=== PATIENT | male | born 1955 | race Caucasian/White ===

== ENCOUNTER 2016-11-02 10:31 | Inpatient (IN) ==
--- NOTE | 2016-11-02 11:12 | CT Report ---
CT brain Indication: Left eye visual disturbance Comparison: None available Technique: Axial CT imaging of the brain is performed without contrast with 3 mm increments. Findings: No evidence of hemorrhage, mass mass effect midline shift or acute infarct seen. Small amounts of decreased density is seen in the white matter in the superior left parietal lobe. Remaining brain parenchyma attenuation and differentiation appears within normal limits. The ventricles and cisterns are normal in caliber. No cranial or skull base abnormality is identified. Impression: No definite evidence of acute infarct or acute process demonstrated. Faint decreased white matter density, nonspecific finding. MRI may be useful for further evaluation. This CT exam was performed using one or more the following dose reduction techniques: Automated exposure control, adjustment of the MA and/or KV according to patient size, or use of iterative reconstruction technique. PROCEDURE INTERPRETED AT [facility] DEPARTMENT OF RADIOLOGY Final Report Signed by: Dr. Jerome Ling
[2016-11-02] MEDS ORDERED: amLODIPine 5 MG TABLET PO STA (11:32)
[2016-11-02] MEDS ORDERED: amLODIPine 5 MG TABLET ONE (11:42)
--- NOTE | 2016-11-02 12:00 | Emergency Department Note ---
I, Sara Fragoso, am scribing for, and in the presence of, Merrill Napier MD 11:08. IKarthikeyan Phillip K, MD, personally performed the services described in this documentation, ascribed by Sara Fragoso in my presence, and it is both accurate and complete 159 . Arrival - Arrival Chief Complaint: Eye Stated Complaint: sent over by Dr. Damon office ED Nursing Triage Note: SENT OVER FROM DR. QUIGLEY'S OFFICE DUE TO PATIENTS VISION COMPLETELY DISAPPEARING FOR APX. 20 MINUTES AROUND 0900 , STATES DR. QUIGLEY DID TEST AND FOUND NO PROBLEM WITH THE EYE SO SENT HIM HERE., FAMILY STATES THAT THEY WERE SENT HERE B/C BLOOD FLOW IS NOT CORRECT., STATES HAVING BLURRY VISION IN THE LEFT EYE., + HEADACHE X 2-3 DAYS. STATES WAS ON BP MEDICATIONS BUT TOOK HIMSELF OFF DUE TO THE BLOOD PRESSURE FALLING OUT Mode of Arrival: Ambulatory Limitations: No Limitations Source: Patient, Significant other - History of Present Illness HPI Narrative: Pt is a 61 y/o male who came to ED from Dr. Quigley's office for further evaluation of intermittent loss of vision to left eye that started a little after 9am today. Pt went to Dr. Quigley's office, in which was told it was "his brain not caused by his eye" per spouse and directed to ED. Pt was given aspirin at office. Pt notes vision in left eye goes maharaj but not completely black and lasts about 20 minutes at a time. Spouse notes pt has had numbness in right arm for a week and 3 days of a left sided COHEN, but denies weakness. Pt notes having nml gait and no swelling in lower extremities. Pt does not have a PCP. PMHx of diverticulitis, HTN. Onset (ago): hour(s) Consistency: intermittent Severity: moderate Severity scale (1-10): 5 Quality: other (changing) Allergies/Adverse Reactions: Allergies Allergy/AdvReac Type Severity Reaction Status Date / Time No Known Allergies Allergy Verified 11/02/16 10:48 Home Medications: Home Medications Medication Instructions Recorded Confirmed Type Omeprazole [Prilosec] 20 mg PO DAILY PRN 11/02/16 11/02/16 History Review of System - Review of System 12 point system: reviewed and no additional remarkable complaints except as stated - Review of System Constitutional: Absent: fever Eyes: Present: vision change (vision turns to maharaj, in waves in left eye; lasting 20 minutes of no vision) Head/Ears/Nose/Throat: Absent: nasal drainage Respiratory: Absent: respiratory distress Cardiovascular: Absent: chest pain Gastrointestinal: Absent: abdominal pain, nausea, vomiting Musculoskeletal: Absent: arm pain, back pain, leg pain, neck pain Skin: Absent: rash Neurological: Present: numbness (in right arm for a week; intermittent). Absent : headache, confusion, abnormal gait Psychiatric: Absent: anxiety Medical,Surgical,& Family Hx - Medical History Cardio: History of: Hypertension (TOOK SELF OFF MEDICATION B/C BP WAS BOTTOMING OUT) Gastrointestinal: History of: Diverticulitis/ Diverticulosis - Family History Family History: noncontributory - Social History Smoking Status: Smoker, status unknown Frequency of Alcohol Use: Frequently Type of Drug Use: None Marital Status: Lives With:: Spouse Functional capacity: independent ambulation Exam Vital Signs: Vital Signs Temperature 99 F 11/02/16 11:13 Pulse Rate 76 11/02/16 11:13 Respiratory Rate 18 11/02/16 11:13 Blood Pressure 193/93 11/02/16 11:13 O2 Sat by Pulse Oximetry 99 11/02/16 10:43 - General General appearance: alert, in no apparent distress - Head Head exam: Present: atraumatic, normocephalic - Eye Eye exam: Present: PERRL, EOMI, other (dilated eyes from medication [employer] from Dr. Quigley's office) - ENT ENT exam: Present: mucous membranes moist. Absent: mucous membranes dry - Neck Neck exam: Present: full ROM. Absent: tenderness - Chest Chest inspection: Present: symmetric chest wall rise. Absent: tenderness - Respiratory Respiratory exam: Present: normal lung sounds bilaterally. Absent: respiratory distress - Cardiovascular Cardiovascular exam: Present: regular rate, normal rhythm, normal heart sounds - Abdominal Exam Abdominal exam: Present: soft. Absent: tenderness - Extremities Exam Extremities exam: Present: full ROM. Absent: tenderness, pedal edema - Neurological Exam Neurological exam: Present: alert, oriented X3, CN II-XII intact, reflexes normal, other (decreased sensation to right arm). Absent: motor sensory deficit - Psychiatric Psychiatric exam: Present: normal affect, normal mood - Skin Skin exam: Present: warm, dry, intact Course Course Narrative: Patient discussed with the hospitalist. Results - Labs CBC & BMP: 11/02/16 11:47 11/02/16 11:47 Lab Results: I have reviewed the patients labs Labs: Laboratory Tests 11/02/16 11/02/16 11:47 11:47 RBC 5.87 H Hgb 18.3 H Hct 52.6 H Neut % (Auto) 77.3 H Lymph % (Auto) 15.0 L Lymph # (Auto) 1.3 L Glucose 108 H Calculated Osmolality 271.0 L ALT 68 H - Diagnostic Findings Procedure: CT: report reviewed by me, pending (Head wo con: No definite evidence of acute infarct or acute process demonstrated. Faint decreased white matter density, nonspecific finding. MRI may be useful for further evaluation.) Disposition Clinical Impression: Amaurosis fugax of left eye, Hypertension Case discussed with: patient Disposition: Still a Patient Condition: Guarded
[2016-11-02 12:06] LABS: Basophils % 0.4 % (0.0-0.8); Eosinophils % 0.2 % (0.00-10.9); Hematocrit 52.6 VOL% (42.0-52.0); Hemoglobin 18.3 GM/DL (14.0-18.0); Immature Granulocytes % 0.4 %; Immature Granulocytes Absolute 0.03 #; Lymphocytes # 1.3 10*3/uL (1.4-4.0); Mean Corpuscular HGB Conc 34.8 GM/DL (32-36); Mean Corpuscular Hemoglobin 31 PG (27-34); Mean Corpuscular Volume 89.6 FL (87-102); Mean Platelet Volume 9.7 FL (9.6-12.0); Monocytes # 0.6 10*3/uL (0.11-0.8); Monocytes % 6.7 % (1.7-12.7); Neutrophils # 6.5 10*3/uL (1.4-7.4); Neutrophils % 77.3 % (38.7-73.9); Platelet Count 146 T/CUMM (130-400); Red Blood Count 5.87 MC/CUMM (3.8-5.5); Red Cell Distribution Width 12.7 % (9.3-17.3); White Blood Count 8.4 T/CUMM (4-12)
[2016-11-02 12:25] LABS: INR 1.1; PT Patient Result 11.9 SECS; Partial Thromboplastin Time 30.2 SECS (0-40)
[2016-11-02 12:37] LABS: Albumin 4.3 G/DL (3.4-5.0); Bilirubin,Total 0.4 MG/DL (0.2-1.0); Calcium 9.6 MG/DL (8.5-10.1); Potassium 4.7 MMOL/L (3.5-5.1); Total Protein 7.8 G/DL (6.4-8.3)
[2016-11-02] MEDS ORDERED: PANTOPRAZOLE 40 MG TABLET PO PRN (12:51)
--- NOTE | 2016-11-02 12:54 | Hospitalist History & Physical ---
Assessment and Plan (1) Transient ischemic attack (TIA) Status: Acute Assessment and plan: Impression: 1. TIA manifested as amaurosis fugax 2. Hypertension 3. Nicotine addiction 4. Alcohol abuse Plan: Head scan did not show any acute injury. Will get a carotid ultrasound and echocardiogram. Monitor on telemetry. Vascular surgery evaluation if carotid ultrasound is abnormal. Aspirin has already been given. He will need to find a family physician for monitoring of blood pressure. We also discussed smoking cessation. This note was completed using [employer] voice recognition software. There may be director of group sales errors as a result. Current Visit: Yes Qualifiers: Transient cerebral ischemia type: amaurosis fugax Qualified Code(s): G45.3 - Amaurosis fugax History of Present Illness Chief complaint: Blind in left eye History of present illness: Mr. Lynn is a 61 year old male The patient reports that he was diagnosed as being hypertensive about a year ago. He says that he took antihypertensives for about a month, and then passed out when he was working in his yard. He says that he measured his blood pressure at that time and the systolic was about 90. At that time, he discontinued his antihypertensives. He reports no prior history of heart disease, myocardial infarction, congestive heart failure, chest pain, or stroke. For the past few days, he has had episodes of intermittent paresthesias in the right upper extremity. Today, he was at work, and had the sudden onset of monocular vision loss on the left side. He says that this lasted for about 20 minutes, and then resolve spontaneously. He did not have any associated headache. There has been no speech problem. There has been no weakness or paresthesia in the right lower extremity. He smokes about 2 packs of cigarettes per day. He is a family history of stroke. He went to the eye doctor, and was told that his eyes looked good. The eye doctor referred him to the emergency room for further evaluation. Home Medications Medication Instructions Recorded Confirmed Type Omeprazole [Prilosec] 20 mg PO DAILY PRN 11/02/16 11/02/16 History Allergies Allergy/AdvReac Type Severity Reaction Status Date / Time No Known Allergies Allergy Verified 11/02/16 10:48 Medical,Surgical,& Family Hx - Medical History Cardio: History of: Hypertension (TOOK SELF OFF MEDICATION B/C BP WAS BOTTOMING OUT) Gastrointestinal: History of: Diverticulitis/ Diverticulosis - Surgical History Additional Surgical History: Vein stripping right lower extremity - Social History Smoking Status: Current every day smoker (2 packs per day) Frequency of Alcohol Use: Frequently (12 pack per day) Type of Drug Use: None Review of systems: Gen.: No weight loss or gain over the past year. Eyes: See history of present on. Ears nose and throat: No change in auditory acuity, sinus problems, nasal allergies, or sore throat. Lungs: No asthma, bronchitis, or pneumonia. Cardiac: No chest pain, myocardial infarction, heart failure, stroke, murmur, or rheumatic fever. GI: No liver disease, nausea, vomiting, or diarrhea. : No hematuria, UTI, or stones. Neurologic: No seizures. Endocrine: No thyroid disease. Hematologic: No anemia or blood dyscrasias. Skin: No rashes or lesions. Musculoskeletal: Only age-related arthritic complaints. Exam - Constitutional Vitals: Vital signs are noted in the nursing notes. General: He is a pleasant white man in no distress. HEENT: Pupils are round and pharmacologically dilated. Extraocular muscles are normal. Gaze is conjugate. Fundi look normal. There is no nasal discharge. Mucous membranes are moist. Neck: Supple, without mass, bruit, or venous distention. Cardiac: Rhythm is regular. The carotids are normal. I don't hear murmur gallop or rub. Peripheral pulses are intact. Lungs: Clear without rales, wheezes, or rubs. Abdomen: Soft and nontender. Bowel sounds are present. No mass palpable. Rectal: Not done. Extremities: No cyanosis, clubbing, or edema. Skin: No significant rash or lesion. He has some venous stasis changes in the right lower extremity Neurologic: He is awake and alert. He moves all 4 extremities. Cranial nerves appear to be intact. No pathologic reflexes are elicited. Results - Labs CBC & BMP: 11/02/16 11:47 11/02/16 11:47 Lab Results: I have reviewed the past 24 hour labs
--- NOTE | 2016-11-02 15:17 | Ultrasound Report ---
Exam: US carotid duplex BI Date: 11/02/2016 1:39 PM Indication: Left amaurosis fugax Technique: Duplex scan of the bilateral carotid arteries using B-mode/grayscale imaging and Doppler spectral analysis and color flow. Findings: Right Flow velocities centimeters per second Common carotid artery: 66 Proximal ICA: 74 Distal ICA: 85 External carotid artery: 78 Vertebral artery: 35 with antegrade flow ICA/CCA ratio: 1.3 Measurements in millimeters Distal ICA: 4.7 Left: Flow velocities centimeters per second Common carotid artery: 74 Proximal ICA: 100 Distal ICA: 65 External carotid artery: 25 Vertebral artery: 55 with antegrade flow ICA/CCA ratio: 1.4 Measurements in millimeters Distal ICA: 3.7 Multifocal atherosclerotic plaque is noted within the distal common carotid artery and carotid bulb. There is also mild focal atherosclerotic plaque right at the origin of the internal carotid arteries bilaterally. Overall, by ultrasound criteria mild (16-49%) luminal stenosis is suggested within both internal carotid arteries. Color flow is present in all visualized vessels with Doppler analysis. Impression: Multifocal plaque bilaterally however only mild (16 - 49 %) luminal stenosis is suggested within either internal carotid artery. Today studies were performed utilizing indirect NASCET criteria The ultrasound images were stored and captured PROCEDURE INTERPRETED AT [facility] DEPARTMENT OF RADIOLOGY Final Report Signed by: Rigoberto Swenson
[2016-11-03 05:30] LABS: Basophils % 0.3 % (0.0-0.8); Eosinophils # 0.1 10*3/uL (0.0-0.87); Eosinophils % 1.6 % (0.00-10.9); Hematocrit 50.1 VOL% (42.0-52.0); Hemoglobin 17.2 GM/DL (14.0-18.0); Immature Granulocytes % 0.4 %; Immature Granulocytes Absolute 0.03 #; Lymphocytes # 2.1 10*3/uL (1.4-4.0); Lymphocytes % 28.4 % (21.2-54.2); Mean Corpuscular HGB Conc 34.3 GM/DL (32-36); Mean Corpuscular Hemoglobin 31 PG (27-34); Mean Corpuscular Volume 90.1 FL (87-102); Mean Platelet Volume 9.9 FL (9.6-12.0); Monocytes # 0.7 10*3/uL (0.11-0.8); Monocytes % 8.7 % (1.7-12.7); Neutrophils # 4.6 10*3/uL (1.4-7.4); Neutrophils % 60.6 % (38.7-73.9); Platelet Count 145 T/CUMM (130-400); Red Blood Count 5.56 MC/CUMM (3.8-5.5); Red Cell Distribution Width 12.7 % (9.3-17.3); White Blood Count 7.5 T/CUMM (4-12)
[2016-11-03 06:16] LABS: Calcium 9.1 MG/DL (8.5-10.1); Osmolality,Calculated 277.5 MOS/KG (273-304); Potassium 4.3 MMOL/L (3.5-5.1)
[2016-11-03] MEDS ORDERED: ASPIRIN 325 MG TABLET PO SCH (09:00)
[2016-11-03 09:58] VITALS: BP 135/68
--- NOTE | 2016-11-03 12:18 | Discharge Summary ---
Hospital Course - Hospital Course Hospital Course: Discharge diagnosis: 1. Left hemispheric TIA 2. Hypertension The patient presented to the hospital with left-sided amaurosis fugax and some paresthesia of the right upper extremity. He underwent a carotid ultrasound which showed less than 50% stenosis bilaterally. Echocardiogram is pending at this time. He has not had any persistent symptoms, and is back to normal neurologically. We discussed smoking cessation. He is going to check with his insurance to see what sort of benefit is covered. We will give him Chantix, nicotine replacement , aspirin, and a statin. His also smokes, and they are going to attempt to quit together. Medication reconciliation has been performed. Regular diet. Activity as tolerated. This note was completed using [employer] voice recognition software. There may be solar lab technician errors as a result. - Time spent with patient Time spent discussing smoking cessation with patient: more than 10 minutes Diagnosis - Discharge Diagnosis (1) Transient ischemic attack (TIA) Status: Acute Discharge Plan - Discharge Data Disposition: Disch To Home/Self Care Condition at Discharge: Stable Discharge Diet: advance to your usual diet Activity: resume usual activities as tolerated Hygiene: no restrictions Weight Bearing at Discharge: full weight bearing Driving: no restrictions - Discharge Medications New Lovastatin 40 mg PO DAILY #30 tablet Nicotine 21 mg/24 Hr Patch [Nicoderm CQ 21 mg/24 hr Patch] 1 patch TRANSDERM DAILY #30 patch Aspirin Tab 325 mg PO DAILY tablet Varenicline Tartrate [Chantix Starter Month Pack] 1 each PO DAILY #30 tab.ds.pk Continue Omeprazole [Prilosec] 20 mg PO DAILY PRN PRN Reason: GERD - Follow Up or Referral - Forms/Instructions Exam - Constitutional Vitals: Period Temp Pulse Resp BP Sys/Cheney Pulse Ox Last 24 Hr 98.2 F-99.8 F 54-73 18-20 135-157/65-87 94-96 Vital signs are noted above. Heart is regular with no murmur. There is no carotid bruit. Lungs are clear. Neurologic examination is normal. Pharmacologic mydriasis has worn off. Discharge Results Labs on day of discharge: Labs from last 24 hours 11/03/16 11/03/16 05:04 05:04 WBC 7.5 RBC 5.56 H Hgb 17.2 Hct 50.1 MCV 90.1 MCH 31 MCHC 34.3 RDW 12.7 Plt Count 145 MPV 9.9 Neut % (Auto) 60.6 Lymph % (Auto) 28.4 [place] % (Auto) 8.7 Eos % (Auto) 1.6 Baso % (Auto) 0.3 Neut # (Auto) 4.6 Lymph # (Auto) 2.1 [place] # (Auto) 0.7 Eos # (Auto) 0.1 Baso # (Auto) 0.0 Immature Gran % 0.4 Nucleated RBC % 0.0 Immature Gran # 0.03 Nucleated RBCs # 0.00 Sodium 139 Potassium 4.3 Chloride 104 Carbon Dioxide 24 Anion Gap 15.3 H BUN 15 Creatinine 0.90 GFR Calculation 112 BUN/Creatinine Ratio 16.00 Glucose 92 Calculated Osmolality 277.5 Calcium 9.1 DS: Provider Date of admission: 11/02/16 11:59 Primary care physician: . No PCP Attending physician on admission: Nathan Iqbal MD Consults: 11/02/16 14:36 Consult to Dietitian [CONS] Routine Reason for Dietitian: Other Discharging clinician: Nathan Iqbal MD Expected date of discharge: 11/03/16
--- NOTE | 2016-11-03 15:08 | EKG Report ---
Stationary ECG Study [facility] Test Date: 11/02/2016 10:57:03 AM Pat Name: MATTHIEU RODRIGUEZ Department: Room: 517 Gender: M Cannon Pinion Adjuster: : 1955 Requested by: Merrill Frederick Order Number: [id number] Reading MD: NETO CHACON Intervals [place] Rate: 77 P: 51 [place]: 185 QRS: 58 QRSD: 105 T: 46 QT: 365 QTc: 396 Interpretive Statements SINUS RHYTHMAt 77 bpm WNL Electronically Signed On 11-05-16 10:53:06 CDT by NETO CHACON [email or web address]
--- NOTE | 2016-11-04 07:09 | ECHO Report ---
[facility] Exam Date: 11/03/2016 08:07 Referring Physician: Technologist: Ligia Rdz PARKER Age: 61 Ht (in): 71 Wt (lb): 215 Gender: M Exam Location: [facility] Echo Indications: Transient cerebral ischemic attack, unspecified, Amaurosis fugax, Essential (primary) hypertension, Nicotine dependence, cigarettes, uncomplicated, Alcohol abuse BP: 135 / 68 HR: 66 Rhythm: Sinus Technical Quality: Good IMPRESSIONS Left ventricular ejection fraction is estimated at 65 %. Diastolic parameters are normal. Normal left ventricular wall thickness. No significant pathology identified on the images in this study. MEASUREMENTS (Male / Female) Normal Values 2D ECHO LV Diastolic Diameter PLAX 4.1 cm 4.2 - 5.9 / 3.9 - 5.3 cm LV Systolic Diameter PLAX 2.2 cm LV Fractional Shortening PLAX 45.6 % IVS Diastolic Thickness 1.0 cm 0.6 - 1.0 / 0.6 - 0.9 cm LVPW Diastolic Thickness 1.0 cm 0.6 - 1.0 / 0.6 - 0.9 cm RV Internal Dim ED PLAX 2.8 cm Aortic Root Diameter 3.3 cm LA Systolic Diameter LX 3.5 cm 3.0 - 4.0 / 2.7 - 3.8 cm FINDINGS Left Ventricle Normal left ventricular cavity size. Normal left ventricular wall thickness. Left ventricular ejection fraction is estimated at 65 %. Diastolic parameters are normal. Right Ventricle The right ventricle is normal in size and function. Right Atrium The right atrium is normal in size. Left Atrium The left atrium is normal in size. Mitral Valve Thickened mitral valve. Trace mitral valve regurgitation. Aortic Valve Morphologically normal aortic valve without significant sclerosis or stenosis. There is no aortic regurgitation. Tricuspid Valve Morphologically normal tricuspid valve. Trace tricuspid valve regurgitation. Pulmonic Valve Morphologically normal pulmonic valve without significant stenosis. There is no pulmonic regurgitation. Pericardium Normal pericardium without effusion. Aorta Normal ascending aorta dimension. Tamera Kelley (Electronically Signed) Final Date: 04 Nov 2016 07:08
== END 2016-11-03 14:13 | disposition home or self-care (01) | DRG 123 ==
LOC: N.ED 10:31 → N.EDINP 11:59 → N.5E 12:31
PROVIDERS: ADMIT Internal Medicine Geriatric Medicine; ATTEND Internal Medicine Geriatric Medicine

== ENCOUNTER 2016-11-16 14:26 | Inpatient (IN) ==
--- NOTE | 2016-11-16 15:16 | XRay Report ---
XR chest 1V portable Indication: Cardiomegaly Comparison: None. Technique: Portable AP chest was performed. Findings: The heart size appears within normal limits. The mediastinal contour and hilar structures demonstrate no significant abnormalities. Lungs are clear. Bones and soft tissues demonstrate no evidence of acute pathology. Impression: 1. No evidence of acute pathology. 11/16/2016 3:12 PM PROCEDURE INTERPRETED AT [facility] DEPARTMENT OF RADIOLOGY Final Report Signed by: Dr. Uziel Murdock
--- NOTE | 2016-11-16 15:18 | EKG Report ---
Stationary ECG Study [facility] Test Date: 11/16/2016 3:16:46 PM Pat Name: MATTHIEU RODRIGUEZ Department: Room: Gender: M School Nurse: : 1955 Requested by: Arden Chacon Order Number: [id number] Reading MD: JIM MCCARTHY Intervals [place] Rate: 62 P: 56 PA: 179 QRS: 69 QRSD: 106 T: 44 QT: 362 QTc: 367 Interpretive Statements SINUS RHYTHM Electronically Signed On 11-16-16 17:34:38 CDT by JIM MCCARTHY [email or web address]
[2016-11-16 15:25] LABS: Basophils % 0.2 % (0.0-0.8); Eosinophils # 0.1 10*3/uL (0.0-0.87); Eosinophils % 0.9 % (0.00-10.9); Hemoglobin 16.5 GM/DL (14.0-18.0); Immature Granulocytes % 0.2 %; Immature Granulocytes Absolute 0.02 #; Lymphocytes # 1.8 10*3/uL (1.4-4.0); Lymphocytes % 19.5 % (21.2-54.2); Mean Corpuscular HGB Conc 36.4 GM/DL (32-36); Mean Corpuscular Hemoglobin 32 PG (27-34); Mean Corpuscular Volume 87.6 FL (87-102); Mean Platelet Volume 9.9 FL (9.6-12.0); Monocytes # 0.8 10*3/uL (0.11-0.8); Monocytes % 8.7 % (1.7-12.7); Neutrophils # 6.4 10*3/uL (1.4-7.4); Neutrophils % 70.5 % (38.7-73.9); Platelet Count 158 T/CUMM (130-400); Red Blood Count 5.17 MC/CUMM (3.8-5.5); Red Cell Distribution Width 12.2 % (9.3-17.3); White Blood Count 9.1 T/CUMM (4-12)
[2016-11-16 15:28] LABS: Hematocrit 45.3 VOL% (42.0-52.0)
[2016-11-16 15:36] LABS: PT Patient Result 10.9 SECS; Partial Thromboplastin Time 26.7 SECS (0-40)
[2016-11-16 15:51] LABS: Alanine Aminotransferase 57 U/L (16-61); Alkaline Phosphatase 49 U/L (45-117); Aspartate Amino Transferase 30 U/L (0-37); Blood Urea Nitrogen 14 MG/DL (7-18); Calcium 9.3 MG/DL (8.5-10.1); Glucose 81 MG/DL (74-106); Osmolality,Calculated 278.4 MOS/KG (273-304); Potassium 4.2 MMOL/L (3.5-5.1); Sodium 140 MMOL/L (136-145); Total Protein 7.4 G/DL (6.4-8.3)
--- NOTE | 2016-11-16 15:53 | Emergency Department Note ---
Lane Loco Brooke, am scribing for, and in the presence of, Ramsey Jaramillo MD 14 :53. Clint Loco Doug C, MD, personally performed the services described in this documentation, ascribed by Alva Sherman in my presence, and it is both accurate and complete . Arrival - Arrival Chief Complaint: Eye Stated Complaint: Dr. Quigley's office called ED Nursing Triage Note: PT WITH RECENT ADMISSION AND DX OF AMAUROSIS FUGAX, PT SENT PER DR QUIGLEY FOR ABNORMAL MRI,. PT ALSO HAD ANOTHER EPISODE OF VISION LOSS OF HIS L EYE THIS PAST SATURDAY, PT DENIES ANY COMPLAINTS OF PAIN OR DISCOMFORT Mode of Arrival: Ambulatory Limitations: No Limitations Source: Patient, Significant other (), RN Notes Reviewed Time Seen by Provider: 11/16/16 14:46 - History of Present Illness HPI Narrative: Patient is a 61-year-old gentleman presents emergency room with history of recurring amaurosis fugax. Patient was seen here in the hospital on 11/02/2016 and had carotid Dopplers at that time which revealed no significant stenosis. He was seen by Dr. Quigley for ophthalmologic evaluation and had a MRA of the carotids revealing a high-grade stenosis on the left. Patient was directed to come back to the emergency room for further evaluation and I discussed patient with Dr. Castellano who will evaluate for surgical intervention as well. Patient states his vision is normal and is not having any weakness or paresthesias. He states he has had intermittent paresthesias in his right hand. He states this is fairly brief lasting no more than 5 minutes and subsides spontaneously. He has had no loss of function and has full use of all extremities. Allergies/Adverse Reactions: Allergies Allergy/AdvReac Type Severity Reaction Status Date / Time No Known Allergies Allergy Verified 11/16/16 14:39 Home Medications: Home Medications Medication Instructions Recorded Confirmed Type Omeprazole [Prilosec] 20 mg PO DAILY PRN 11/02/16 11/16/16 History Aspirin EC Tab 81 mg PO QAM 11/16/16 11/16/16 History Clopidogrel [Plavix] 75 mg PO QPM 11/16/16 11/16/16 History Lovastatin 40 mg PO QPM 11/16/16 11/16/16 History Review of System - Review of System 12 point system: reviewed and no additional remarkable complaints except as stated - Review of System Constitutional: Present: other (no speech problems). Absent: fever Eyes: Present: other (intermittent loss of vision in left eye ) Respiratory: Absent: respiratory distress Skin: Absent: rash Neurological: Present: numbness (right hand). Absent: weakness Medical,Surgical,& Family Hx - Medical History Cardio: History of: Hypertension (TOOK SELF OFF MEDICATION B/C BP WAS BOTTOMING OUT) Psychological: No history of: Anxiety Disorders, ADHD, Behavior Problems, Bipolar Disorder, Depression, Previous Suicide Attempt, Psychiatric/Substance Abuse Tx, Schizophrenia, Violent Behavior, Psychiatric Problems Gastrointestinal: History of: Diverticulitis/ Diverticulosis Hematology: History of: Clotting Problems (blood clot right leg several years ago) - Surgical History Neurologic Surgeries: Patient denies: Neurologic Surgery - Family History Family History: Reports;: Family Heart Disease (In both parents), Family Stroke (brother) - Social History Smoking Status: Heavy tobacco smoker Exam Vital Signs: Vital Signs Temperature 98.1 F 11/16/16 15:14 Pulse Rate 76 11/16/16 15:14 Respiratory Rate 18 11/16/16 15:14 Blood Pressure 148/94 11/16/16 15:14 O2 Sat by Pulse Oximetry 95 11/16/16 14:34 - General General appearance: alert, in no apparent distress - Head Head exam: Present: atraumatic, normocephalic - Eye Eye exam: Present: normal appearance, PERRL, EOMI - ENT ENT exam: Present: normal exam, mucous membranes moist - Neck Neck exam: Present: normal inspection - Chest Chest inspection: Present: normal inspection, symmetric chest wall rise - Respiratory Respiratory exam: Present: normal lung sounds bilaterally - Cardiovascular Cardiovascular exam: Present: regular rate, normal rhythm, normal heart sounds - Abdominal Exam Abdominal exam: Present: soft. Absent: distention, tenderness - Extremities Exam Extremities exam: Present: normal inspection - Back Exam Back exam: Present: normal inspection - Neurological Exam Neurological exam: Present: alert, oriented X3 - Psychiatric Psychiatric exam: Present: normal affect, normal mood - Skin Skin exam: Present: warm, dry, intact, normal color Course Course Narrative: Patient's clinical presentation laboratory and radiograph findings were discussed with Dr. Quigley, Dr. Murphy and Rosenda the hospitalist service. Patient will be admitted to the hospitalist service and Dr. Castellano recommends CTA and heparin infusion. Results - Labs CBC & BMP: 11/16/16 15:06 Lab Results: I have reviewed the patients labs Labs: Laboratory Tests 11/16/16 15:06 MCHC 36.4 H Lymph % (Auto) 19.5 L - EKG EKG results: interpreted by LAINA, sinus rhythm (72 bpm), no acute changes - Diagnostic Findings Procedure: Chest x-ray: report reviewed by me (No evidence of acute pathology.) , MRI: report reviewed by me (High-grade stenosis at the origin of the left internal carotid artery on MRA.) Disposition Clinical Impression: Amaurosis fugax of left eye, Carotid artery stenosis Case discussed with: patient, patient's family Disposition: Still a Patient Condition: Stable Time of Disposition: 15:52
--- NOTE | 2016-11-16 16:25 | Hospitalist History & Physical ---
Assessment and Plan (1) Carotid artery stenosis Status: Acute Assessment and plan: Will start heparin gtt per surgery recommendation in preparation for surgical intervention. Will obtain CTA of carotids. Current Visit: Yes (2) Hypertension Status: Acute Assessment and plan: Blood pressures stable; will monitor. Current Visit: No Qualifiers: Hypertension type: essential hypertension Qualified Code(s): I10 - Essential (primary) hypertension (3) Nicotine addiction Status: Acute Assessment and plan: Spoke in great detail on the need to refrain from nicotine use; he reports that he has decreased the number of cigarettes that he smokes since the last admission. He reports that he "only smoke 4 cigarettes a day". Nicotine patch offered; refuses at this time states"I will let yall know if I get the shakes". Current Visit: Yes Qualifiers: Nicotine product type: cigarettes History of Present Illness History of present illness: This is very pleasant 61 year old male that presented to the ED from Dr. Quigley's office for evaluation of carotid stenosis. The patient has a medical history significant for nicotine addiction,alcohol abuse, hyperlipidemia, and hypertension. The patient was recently discharged from an inpatient admission where he was diagnosed with TIA manifested as amaurosis fugax. Carotid dopplers were performed which showed and estimated 16-49% stenosis of his internal carotid arteries bilaterally. He was subsequently started on a lipid lowering agent, aspirin, and nicotine replacement agent. He was instructed to follow-up with his PCP and Dr. Quigley as directed. Today, the patient reported on recurrence of vision affecting the left eye. He reported that the episode lasted momentarily. He was scheduled to see Dr. Quigley today. He was ordered a MRA of the carotids/neck which revealed high-grade stenosis in the left internal carotid artery. At that time, he was directed to present to the ED for further evaluation. Dr. Castellano has been consulted for surgical intervention. After discussion with both Dr. Jaramillo and Dr. Hernandez, the patient will be admitted to the hospitalist service for continuation of care. Home Medications Medication Instructions Recorded Confirmed Type Omeprazole [Prilosec] 20 mg PO DAILY PRN 11/02/16 11/16/16 History Aspirin EC Tab 81 mg PO QAM 11/16/16 11/16/16 History Clopidogrel [Plavix] 75 mg PO QPM 11/16/16 11/16/16 History Lovastatin 40 mg PO QPM 11/16/16 11/16/16 History Allergies Allergy/AdvReac Type Severity Reaction Status Date / Time No Known Allergies Allergy Verified 11/16/16 14:39 Medical,Surgical,& Family Hx - Medical History Cardio: History of: Hypertension (TOOK SELF OFF MEDICATION B/C BP WAS BOTTOMING OUT) Psychological: No history of: Anxiety Disorders, ADHD, Behavior Problems, Bipolar Disorder, Depression, Previous Suicide Attempt, Psychiatric/Substance Abuse Tx, Schizophrenia, Violent Behavior, Psychiatric Problems Gastrointestinal: History of: Diverticulitis/ Diverticulosis Hematology: History of: Clotting Problems (blood clot right leg several years ago) - Surgical History Neurologic Surgeries: Patient denies: Neurologic Surgery - Family History Family History: Reports;: Family Heart Disease (In both parents), Family Stroke (brother) - Social History Smoking Status: Heavy tobacco smoker 12 point system: reviewed and no additional remarkable complaints except as stated Exam - Constitutional General appearance: normal weight, no acute distress - Head Head exam: Present: normal inspection, normocephalic, atraumatic - Eye Eye exam: Present: EOMI. Absent: conjunctival injection, nystagmus Pupils: Present: FATUMA, normal accommodation - ENT ENT exam: Present: normal exam, normal external ear exam, normal oropharynx - Neck Neck exam: Present: normal inspection. Absent: lymphadenopathy, meningismus, tenderness, thyromegaly - Respiratory Respiratory exam: Present: clear to auscultation bilaterally. Absent: rales, rhonchi, stridor, wheezes - Cardiovascular Cardiovascular exam: Present: regular rate and rhythm. Absent: carotid bruit, diastolic murmur, gallop, JVD, rubs, systolic murmur - GI/Abdominal GI/Abdominal exam: Present: normal bowel sounds, soft. Absent: mass, tenderness , rebound - Extremities Exam Extremities exam: Present: normal inspection, normal capillary refill, full ROM. Absent: calf tenderness, edema - Back Exam Back exam: Present: normal inspection - Neurological Exam Neurological exam: Present: alert, oriented X3, CN II-XII intact - Psychiatric Psychiatric exam: Present: normal affect, normal mood. Absent: flat affect - Skin Skin exam: Present: normal color, warm, dry Results - Labs CBC & BMP: 11/16/16 15:06 11/16/16 15:06 Lab Results: I have reviewed the past 24 hour labs
[2016-11-16] MEDS ORDERED: NICOTINE 21 MG/24 HR PATCH TRANSDERM PRN (17:08)
[2016-11-16] MEDS ORDERED: ACETAMINOPHEN 325 MG TABLET PO PRN (17:08)
[2016-11-16] MEDS: HEPARIN DRIP 25,000 UNITS/500 ML PREMIX IV SCH (18:19)
[2016-11-16] MEDS ORDERED: FUROSEMIDE 20 MG/2 ML VIAL IV ONE (20:40)
[2016-11-16] MEDS ORDERED: FUROSEMIDE 100 MG/10 ML VIAL ONE (20:42)
[2016-11-16] MEDS: LOVASTATIN 20 MG TABLET PO SCH (20:48)
[2016-11-16] MEDS: chlordiazePOXIDE 10 MG CAPSULE PO SCH (20:50)
--- NOTE | 2016-11-16 21:06 | CT Report ---
CT angio neck Indication: Left carotid stenosis. Abnormal MRA. Left eye blindness. Comparison: MRA neck 11/16/2016. Technique: Following administration of intravenous contrast, routine CT angiography of the neck was performed. Multiple contiguous axial images were obtained from the skull base through the upper chest. Thin slab MIP reconstructions in the sagittal and coronal planes as well as 3-D volumetric reconstructions of the neck vasculature were submitted for interpretation. The degree of stenosis will be determined using direct NASCET criteria. The CT examination was performed using one or more of the following dose reduction techniques: Automatic exposure control, adjustment of the mA and kV according to patient size, use of acute or iterative reconstruction techniques. Findings: Normal 3 vessel arch anatomy is demonstrated. The left subclavian artery, right brachiocephalic artery and subclavian artery, and right vertebral artery origin are unremarkable. The left and right common carotid arteries demonstrate normal origins. The left vertebral artery as suggested moderate to severe stenosis at the origin. The vertebral arteries appear codominant. The right carotid artery bifurcation demonstrates primarily calcified plaque resulting in mild stenosis of the vessel lumen in which the vessel lumen narrows to 3.5 mm. Distal to the origin of the cervical segment ICA, the distal vessel demonstrates fairly uniform caliber measuring 3.3 mm. Using direct NASCET criteria, no clinically significant stenosis is suggested. A short segment of the mid left common carotid artery demonstrates a small focus of low attenuation thrombus along the medial wall resulting in mild stenosis of the vessel lumen to 5.1 mm. Distal to this, the vessel lumen measures 7.2 mm. At the bifurcation of the left common carotid artery, there is a large amount of mural thrombus present and the left cervical segment internal carotid artery is occluded, perhaps with a minimal "string sign" remaining at the vessel origin. In addition, there is no contrast visualized within the petrous segment, cavernous segment, or visualized clinoid segment of the left ICA. The left external carotid artery appears patent. Enhancing mass posteriorly located within the left parotid gland measures 2 cm in transverse dimension and 1.6 cm in AP dimension. 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 The contralateral parotid gland demonstrates no significant abnormality. Soft tissues and musculature of the neck including thyroid otherwise demonstrate no significant abnormalities. Intraorbital contents are grossly unremarkable. The visualized portion of the upper chest demonstrates no evidence of acute pathology. Moderately advanced centrilobular emphysematous changes are noted. Impression: 1. Complete occlusion of the left cervical segment ICA is demonstrated. There may be a minimal "string sign" at the left cervical segment origin. Additionally, there is no evidence of contrast within the left petrous, cavernous, or visualized clinoid segment ICA. Note is made that an additional comparison study of carotid duplex ultrasound performed 11/02/2016, there is flow documented within the left cervical segment ICA. 2. Non-clinically significant stenosis of the right proximal cervical segment ICA is present. 3. Moderate to severe stenosis of the left vertebral artery origin is suggested. 4. 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 11/16/2016 8:49 PM PROCEDURE INTERPRETED AT [facility] DEPARTMENT OF RADIOLOGY Final Report Signed by: Dr. Uziel Murdock
[2016-11-17 02:15] LABS: Basophils % 0.3 % (0.0-0.8); Eosinophils # 0.1 10*3/uL (0.0-0.87); Eosinophils % 1.1 % (0.00-10.9); Hematocrit 45.2 VOL% (42.0-52.0); Hemoglobin 16.5 GM/DL (14.0-18.0); Immature Granulocytes % 0.4 %; Immature Granulocytes Absolute 0.05 #; Lymphocytes # 2.8 10*3/uL (1.4-4.0); Lymphocytes % 24.7 % (21.2-54.2); Mean Corpuscular HGB Conc 36.5 GM/DL (32-36); Mean Corpuscular Hemoglobin 32 PG (27-34); Mean Corpuscular Volume 88.3 FL (87-102); Mean Platelet Volume 10.2 FL (9.6-12.0); Monocytes # 0.7 10*3/uL (0.11-0.8); Monocytes % 6.6 % (1.7-12.7); Neutrophils # 7.5 10*3/uL (1.4-7.4); Neutrophils % 66.9 % (38.7-73.9); Platelet Count 153 T/CUMM (130-400); Red Blood Count 5.12 MC/CUMM (3.8-5.5); Red Cell Distribution Width 12.2 % (9.3-17.3); White Blood Count 11.2 T/CUMM (4-12)
[2016-11-17] MEDS ORDERED: HEPARIN 5,000 UNIT/1 ML VIAL IV PRN (02:20)
[2016-11-17] MEDS ORDERED: HEPARIN 5,000 UNIT/1 ML VIAL ONE (02:22)
[2016-11-17 02:30] LABS: Albumin 3.7 G/DL (3.4-5.0); Bilirubin,Total 0.7 MG/DL (0.2-1.0); Calcium 8.5 MG/DL (8.5-10.1); Osmolality,Calculated 279.4 MOS/KG (273-304); Potassium 4.4 MMOL/L (3.5-5.1); Risk Ratio 2.19; Total Protein 6.5 G/DL (6.4-8.3)
[2016-11-17] MEDS: PANTOPRAZOLE 40 MG TABLET PO SCH (08:49)
[2016-11-17] MEDS: ASPIRIN EC 81 MG TABLET PO SCH (08:49)
[2016-11-17] MEDS: chlordiazePOXIDE 10 MG CAPSULE PO SCH ×3 (08:49→21:13)
--- NOTE | 2016-11-17 09:15 | Vascular Surgery Consult Note ---
History of Present Illness Chief complaint: left carotid occlusion History of present illness: Mr. Lynn is a 61 year old male Mr. Roly Lynn a 61-year-old man in reasonably good health is a smoker but works full-time and ductwork noted approximately 2 weeks ago an episode of amaurosis and thinks some numbness in his right arm and hand. Was initially evaluated here to hospital with ultrasound showing no significant stenosis patient was placed on aspirin and Plavix discharged home had recurrence of the amaurosis of the left eye this week and had an MRA yesterday that indicated a near total occlusion of the left internal carotid artery. Patient has been rehospitalized and put on a heparin infusion and we have done a CT angiogram which unfortunately indicates that the left internal carotid artery is completely occluded from the bifurcation to the petrous portion. Patient is currently stable has good function of the left and the right arm and leg with no ongoing acute CVA. I discussed the situation with and Mrs. Lynn using a Placed patient information booklet to explain the anatomy and the treatment options available. In general once the artery is completely occluded it is not appropriate to attempt embolectomy thrombectomy and endarterectomy. I believe it is appropriate that we treat him with a heparin infusion for another 24-48 hours review the situation with Dr. Lobo might continue aspirin and Plavix and decide whether Coumadin or Eliquis would be appropriate for period of time as well. Patient does report having used Coumadin in the past number of years many years ago due to deep vein thrombosis I have discussed this with Dr. Taylor and plan is as we discussed and I will follow Saturday. Think patient should be considered for long-term follow-up with ultrasound to make certain that he does not have progression of disease in the right side. Home Medications Medication Instructions Recorded Confirmed Type Omeprazole [Prilosec] 20 mg PO DAILY PRN 11/02/16 11/16/16 History Aspirin EC Tab 81 mg PO QAM 11/16/16 11/16/16 History Clopidogrel [Plavix] 75 mg PO QPM 11/16/16 11/16/16 History Lovastatin 40 mg PO QPM 11/16/16 11/16/16 History Allergies Allergy/AdvReac Type Severity Reaction Status Date / Time IVP dye Allergy Mild SHORTNESS Uncoded 11/16/16 22:32 OF BREATH Medical,Surgical,& Family Hx - Medical History Cardio: History of: Hypertension (TOOK SELF OFF MEDICATION B/C BP WAS BOTTOMING OUT) Psychological: No history of: Anxiety Disorders, ADHD, Behavior Problems, Bipolar Disorder, Depression, Previous Suicide Attempt, Psychiatric/Substance Abuse Tx, Schizophrenia, Violent Behavior, Psychiatric Problems Gastrointestinal: History of: Diverticulitis/ Diverticulosis Hematology: History of: Clotting Problems (blood clot right leg several years ago) - Surgical History Cardiac Surgeries: Patient Denies: Cardiac Catheterization Neurologic Surgeries: Patient denies: Neurologic Surgery Abdominal Surgeries: Patient denies: Abdominal Surgery - Family History Family History: Reports;: Family Heart Disease (In both parents), Family Stroke (brother) - Social History Smoking Status: Heavy tobacco smoker Frequency of Alcohol Use: None Type of Drug Use: None Exam - Constitutional Vitals: Period Temp Pulse Resp BP Sys/Cheney Pulse Ox Last 24 Hr 96.1 F-98.2 F 56-72 16-20 146-189/72-90 93-96 Quality Measures - VTE Contraindication to Pharmacological VTE Prophylaxis: Already on Theraputic Agent , No Prophylaxis Needed - Stroke Onset of Symptoms Date: 11/16/16 Presenting Symptoms: Sudden visual loss Symptom Onset Unknown: No Results - Labs CBC & BMP: 11/17/16 01:36 11/17/16 01:36
--- NOTE | 2016-11-17 09:38 | Hospitalist Progress Note ---
Assessment and Plan - Time spent with patient Time spent with patient: Less than 30 minutes (1) Transient ischemic attack (TIA) Status: Acute Assessment and plan: Patient was admitted with TIA. He is now on IV heparin has had no further episodes. Will continue over the weekend with neurologic evaluation recommendations thereafter. He is deemed not a candidate for surgical intervention as he has total occlusion of his left ICA. Current Visit: No Qualifiers: Transient cerebral ischemia type: amaurosis fugax Qualified Code(s): G45.3 - Amaurosis fugax (2) Hypertension Status: Chronic Assessment and plan: Blood pressures well controlled. Continue current regimen. Current Visit: No Qualifiers: Hypertension type: essential hypertension Qualified Code(s): I10 - Essential (primary) hypertension (3) Carotid artery stenosis Status: Acute Assessment and plan: CTA revealed total occlusion of left ICA. He has been evaluated by Dr. Castellano and it is recommended to continue IV heparin over the weekend with formal neurologic evaluation recommendations on Saturday. Current Visit: Yes Qualifiers: Laterality: left Qualified Code(s): I65.22 - Occlusion and stenosis of left carotid artery (4) Nicotine addiction Status: Acute Assessment and plan: Continuing to address smoking cessation. Current Visit: Yes Qualifiers: Nicotine product type: cigarettes Hospitalist: Subjective Interval history: Chart is been reviewed and patient has been examined. Discussed with Dr. Hernandez who had a discussion with Dr. Castellano this morning about his plans and recommendations. Patient has had no further spells. He has been ambulatory in the room. He is tolerating his diet. Have discussed with both he and his plans for IV heparin over the weekend with neurologic evaluation and recommendations in regards to anticoagulant therapy thereafter. Exam - Constitutional Vitals: Period Temp Pulse Resp BP Sys/Cheney Pulse Ox Last 24 Hr 96.1 F-98.2 F 56-72 16-20 146-189/72-90 93-96 General appearance: no acute distress - Head Head exam: Present: normocephalic, atraumatic - Eye Eye exam: Present: EOMI Pupils: Present: FATUMA - ENT ENT exam: Present: normal exam - Neck Neck exam: Present: normal inspection - Respiratory Respiratory exam: Present: clear to auscultation bilaterally - Cardiovascular Cardiovascular exam: Present: regular rate and rhythm - GI/Abdominal GI/Abdominal exam: Present: normal bowel sounds, soft. Absent: mass, tenderness , rebound - Extremities Exam Extremities exam: Present: normal inspection - Back Exam Back exam: Present: normal inspection - Neurological Exam Neurological exam: Present: alert, oriented X3, CN II-XII intact. Absent: motor sensory deficit - Psychiatric Psychiatric exam: Present: normal affect, normal mood. Absent: agitated, anxious - Skin Skin exam: Present: warm, dry. Absent: erythema, rash Results - Labs CBC & BMP: 11/17/16 01:36 11/17/16 01:36 Lab Results: I have reviewed the past 24 hour labs - Diagnostic Findings Procedure: CT: report reviewed by me (Complete occlusion of left cervical segment RCA is demonstrated) Quality Measures - VTE Contraindication to Pharmacological VTE Prophylaxis: Already on Theraputic Agent , No Prophylaxis Needed - Stroke Onset of Symptoms Date: 11/16/16 Presenting Symptoms: Sudden visual loss Symptom Onset Unknown: No
[2016-11-17] MEDS: HEPARIN DRIP 25,000 UNITS/500 ML PREMIX IV SCH (16:02)
[2016-11-17] MEDS: LOVASTATIN 20 MG TABLET PO SCH (21:13)
[2016-11-18] MEDS: HEPARIN DRIP 25,000 UNITS/500 ML PREMIX IV SCH ×3 (05:19→16:47)
[2016-11-18] MEDS: PANTOPRAZOLE 40 MG TABLET PO SCH (08:56)
[2016-11-18] MEDS: chlordiazePOXIDE 10 MG CAPSULE PO SCH ×3 (08:56→20:33)
[2016-11-18] MEDS: ASPIRIN EC 81 MG TABLET PO SCH (08:56)
--- NOTE | 2016-11-18 09:36 | Hospitalist Progress Note ---
Assessment and Plan - Time spent with patient Time spent with patient: Less than 30 minutes (1) Transient ischemic attack (TIA) Status: Acute Assessment and plan: 11/17/16: Patient was admitted with TIA. He is now on IV heparin has had no further episodes. Will continue over the weekend with neurologic evaluation recommendations thereafter. He is deemed not a candidate for surgical intervention as he has total occlusion of his left ICA. 11/18/16: Continuing IV heparin over the weekend with neurologic evaluation formally on Saturday and recommendations for long-term anticoagulation thereafter. Current Visit: No Qualifiers: Transient cerebral ischemia type: amaurosis fugax Qualified Code(s): G45.3 - Amaurosis fugax (2) Hypertension Status: Chronic Assessment and plan: Blood pressures well controlled. Continue current regimen. Current Visit: No Qualifiers: Hypertension type: essential hypertension Qualified Code(s): I10 - Essential (primary) hypertension (3) Carotid artery stenosis Status: Acute Assessment and plan: CTA revealed total occlusion of left ICA. He has been evaluated by Dr. Castellano and it is recommended to continue IV heparin over the weekend with formal neurologic evaluation recommendations on Saturday. Current Visit: Yes Qualifiers: Laterality: left Qualified Code(s): I65.22 - Occlusion and stenosis of left carotid artery (4) Nicotine addiction Status: Acute Assessment and plan: Continuing to address smoking cessation. Current Visit: Yes Qualifiers: Nicotine product type: cigarettes Hospitalist: Subjective Interval history: Patient sitting up in a chair today without complaints. He has had no further spells or issues. No evidence of bleeding. Exam - Constitutional Vitals: Period Temp Pulse Resp BP Sys/Cheney Pulse Ox Last 24 Hr 97.6 F-98.7 F 54-98 16-20 117-141/62-74 92-97 General appearance: no acute distress - Head Head exam: Present: normocephalic, atraumatic - Eye Eye exam: Present: EOMI Pupils: Present: FATUMA - ENT ENT exam: Present: normal exam - Neck Neck exam: Present: normal inspection - Respiratory Respiratory exam: Present: clear to auscultation bilaterally - Cardiovascular Cardiovascular exam: Present: regular rate and rhythm - GI/Abdominal GI/Abdominal exam: Present: normal bowel sounds, soft. Absent: mass, tenderness , rebound - Extremities Exam Extremities exam: Present: full ROM. Absent: calf tenderness, edema - Back Exam Back exam: Present: normal inspection - Neurological Exam Neurological exam: Present: alert, oriented X3, CN II-XII intact. Absent: motor sensory deficit - Psychiatric Psychiatric exam: Present: normal affect, normal mood. Absent: agitated, anxious - Skin Skin exam: Present: warm, dry. Absent: petechiae, rash Results - Labs CBC & BMP: 11/17/16 01:36 11/17/16 01:36 Lab Results: I have reviewed the past 24 hour labs Quality Measures - VTE Contraindication to Pharmacological VTE Prophylaxis: Already on Theraputic Agent , No Prophylaxis Needed - Stroke Onset of Symptoms Date: 11/16/16 Presenting Symptoms: Sudden visual loss Symptom Onset Unknown: No
[2016-11-18] MEDS: LOVASTATIN 20 MG TABLET PO SCH (20:34)
[2016-11-19] MEDS: HEPARIN DRIP 25,000 UNITS/500 ML PREMIX IV SCH (08:26)
[2016-11-19] MEDS: ASPIRIN EC 81 MG TABLET PO SCH (08:27)
[2016-11-19] MEDS: chlordiazePOXIDE 10 MG CAPSULE PO SCH ×2 (08:27→14:44)
[2016-11-19] MEDS: PANTOPRAZOLE 40 MG TABLET PO SCH (08:27)
--- NOTE | 2016-11-19 08:41 | Hospitalist Progress Note ---
Assessment and Plan (1) Amaurosis fugax of left eye Status: Acute Assessment and plan: Currently on heparin and aspirin. Awaiting Dr. Farrell's evaluation Current Visit: No (2) Hypertension Status: Chronic Assessment and plan: Blood pressure controlled without medication Current Visit: No Qualifiers: Hypertension type: essential hypertension Qualified Code(s): I10 - Essential (primary) hypertension (3) Carotid artery stenosis Status: Acute Assessment and plan: Complete occlusion of the left ICA. Already seen by Dr. Castellano. Patient already has collaterals. Current Visit: Yes Qualifiers: Laterality: left Qualified Code(s): I65.22 - Occlusion and stenosis of left carotid artery (4) Nicotine addiction Status: Acute Assessment and plan: Continue nicotine patch. Current Visit: Yes Qualifiers: Nicotine product type: cigarettes Hospitalist: Subjective Interval history: Mr. Lynn says he feels great he has some loss of vision in his left eye and tingling in his right arm. Dr. Castellano has seen him and does not not recommend any intervention at this time. He is currently on heparin. We are awaiting input from Dr. Farrell to determine what he goes home on. Exam - Constitutional Vitals: Period Temp Pulse Resp BP Sys/Cheney Pulse Ox Last 24 Hr 97.6 F-98.6 F 52-66 16-20 105-141/63-75 91-95 Exam: Heart Rate-[RRR] Lungs-[CTAB] GI-[+bs soft, NT] Ext-[no edema] Neuro [Motor 5/5], [alert and oriented times 3] psych [normal mood and affect] General [no acute distress] Results - Labs CBC & BMP: 11/17/16 01:36 11/17/16 01:36 Lab Results: I have reviewed the past 24 hour labs - Diagnostic Findings Procedure: CT: report reviewed by me (Complete occlusion of the left ICA) Quality Measures - VTE Contraindication to Pharmacological VTE Prophylaxis: Already on Theraputic Agent , No Prophylaxis Needed - Stroke Onset of Symptoms Date: 11/16/16 Presenting Symptoms: Sudden visual loss Symptom Onset Unknown: No
--- NOTE | 2016-11-19 11:13 | Event Note ---
Mr. Lynn is doing well neurologically with no further events of amaurosis or weakness of the right arm or leg at this point time the question should be whether he can be discharged on aspirin and Plavix or aspirin Eliquis Xarelto or Coumadin would be more appropriate. 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 I think once the decision is made whether to stay with aspirin and Plavix or mood aspirin and a stronger anticoagulant he can then be discharged. Would like to follow him in approximately 3 months with ultrasound to determine if there is no change in the right side and make certain he does not recanalize spontaneously the left internal carotid
[2016-11-19] MEDS ORDERED: CLOPIDOGREL 75 MG TABLET PO ONE (16:48)
--- NOTE | 2016-11-19 16:49 | Discharge Summary ---
Hospital Course - Hospital Course Hospital Course: 61-year-old male with a history hypertension, nicotine dependence and hyperlipidemia presents to the emergency room after seeing Dr. Quigley in the office patient had complained of difficulty with his vision in his left eye. Patient was diagnosed with amaurosis fugax in his left eye. MRA of head and neck showed distal left ICA occlusion with collateral flow. Patient smokes and drinks daily. Dr. Castellano consulted. CTA of neck showed complete occlusion of left ICA. 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 Castellano will go up and speak with him about. Dr. Farrell has seen patient and recommends asa and plavix and d/c heparin. Patient counseled to stop smoking and nicotine patches were prescribed. His cholesterol is 116 with ldl of 58. Discharge home with follow up with Dr Farrell, Dr Castellano, Dr Barroso and PMD. No blood pressure medications needed at this time but should be re-evaluated by his PMD. Patient seen at 4:[address] Farrell and discharge completed by 5: 00 pm - Time spent with patient Time with patient DS: Less than 30 minutes (25 min) Diagnosis - Discharge Diagnosis (1) Amaurosis fugax of left eye Status: Acute (2) Hypertension Status: Chronic (3) Carotid artery stenosis Status: Acute (4) Nicotine addiction Status: Acute Specialty Discharge - Follow Up or Referrals Follow up with: мария, [Other] - 2 Weeks Ac Farrell MD [Physician] - 2 Weeks Richy Barroso DO [Physician] - 1 Week (left parotid adenoma measuring 2 cm ) Liam Castellano MD [Physician] - (3 MONTHS) Discharge Plan - Discharge Data Disposition: Disch To Home/Self Care Condition at Discharge: Stable Discharge Diet: heart healthy Activity: resume usual activities as tolerated Hygiene: no restrictions Weight Bearing at Discharge: full weight bearing Driving: no restrictions - Discharge Medications New Nicotine 21 mg/24 Hr Patch [Nicoderm CQ 21 mg/24 hr Patch] 1 patch TRANSDERM DAILY #42 patch Continue Aspirin EC Tab 81 mg PO QAM Omeprazole [Prilosec] 20 mg PO DAILY PRN PRN Reason: GERD Changed Clopidogrel [Plavix] 75 mg PO DAILY #30 tablet Lovastatin 80 mg PO QPM #60 tablet - Follow Up or Referral Follow Up: Ac Farrell MD [Physician] - 2 Weeks Richy Barroso DO [Physician] - 1 Week (left parotid adenoma measuring 2 cm ) Liam Castellano MD [Physician] - (3 MONTHS) dr мария [Other] - 1 Week - Forms/Instructions Additional Discharge Instructions: carotid us prior to appt with Dr. Castellano for carotid stenosis. buy blood pressure cuff and record twice a day in the morning and at bedtime and bring with you to see PMD Exam - Constitutional Vitals: Period Temp Pulse Resp BP Sys/Cheney Pulse Ox Last 24 Hr 97.6 F-98.6 F 53-66 18-20 129-141/63-75 91-95 Exam: see note from today. Discharge Results Procedures and tests throughout hospitalization: Pending Orders 11/19/16 19:00 PTT [Partial Thromboplastin Time] Routine Labs on day of discharge: Labs from last 24 hours 11/19/16 11/19/16 11/18/16 13:01 04:47 21:53 Circ Anticoag PTT 57.4 H D 92.0 H D 63.4 H D 11/18/16 16:09 Circ Anticoag PTT 45.1 H D DS: Provider Date of admission: 11/16/16 15:56 Primary care physician: . No PCP Attending physician on admission: Milagros Hernandez MD Consults: 11/16/16 17:08 Consult to Physician [CONS] Routine Comment: carotid stenosis Consulting Provider: Liam Castellano Consult to Specialist Group: Surgery Person Notified: JAM Date Notified: 11/19/16 Time Notified: 09:00 11/19/16 07:20 Consult to Physician [CONS] Routine Comment: on heparin Consulting Provider: Ac Farrell Consult to Specialist Group: Neurology Person Notified: HEATH Date Notified: 11/19/16 Time Notified: 09:00 11/19/16 07:48 Consult to Physician [CONS] Routine Comment: Consulting Provider: Discharging clinician: Luz Price MD
--- NOTE | 2016-11-19 17:01 | Neurology Consult Note ---
History of Present Illness History of present illness: 61 year old right-handed white gentleman who was admitted for evaluation of carotid stenosis. The patient has a medical history significant for nicotine addiction,alcohol abuse, hyperlipidemia, and hypertension. The patient was evaluated by me in the office where he was diagnosed with TIA manifested as amaurosis fugax. Carotid dopplers were performed which showed and estimated 16- 49% stenosis of his internal carotid arteries bilaterally. He was subsequently started on a lipid lowering agent, aspirin, and nicotine replacement agent. Patient had another episode of amaurosis fugax in the left eye. He reported that the episode lasted momentarily. He was ordered a MRA of the carotids/neck which revealed high-grade stenosis in the left internal carotid artery. A CT angiogram was performed which revealed complete occlusion of the left internal carotid artery. Right ICA looks okay. Home Medications Medication Instructions Recorded Confirmed Type Omeprazole [Prilosec] 20 mg PO DAILY PRN 11/02/16 11/16/16 History Aspirin EC Tab 81 mg PO QAM 11/16/16 11/16/16 History Clopidogrel [Plavix] 75 mg PO DAILY #30 tablet 11/19/16 Rx Lovastatin 80 mg PO QPM #60 tablet 11/19/16 Rx Nicotine 21 mg/24 Hr Patch 1 patch TRANSDERM DAILY #42 patch 11/19/16 Rx [Nicoderm CQ 21 mg/24 hr Patch] Allergies Allergy/AdvReac Type Severity Reaction Status Date / Time IVP dye Allergy Mild SHORTNESS Uncoded 11/16/16 22:32 OF BREATH 12 point system: reviewed and no additional remarkable complaints except as stated Medical,Surgical,& Family Hx - Medical History Cardio: History of: Hypertension (TOOK SELF OFF MEDICATION B/C BP WAS BOTTOMING OUT) Psychological: No history of: Anxiety Disorders, ADHD, Behavior Problems, Bipolar Disorder, Depression, Previous Suicide Attempt, Psychiatric/Substance Abuse Tx, Schizophrenia, Violent Behavior, Psychiatric Problems Gastrointestinal: History of: Diverticulitis/ Diverticulosis Hematology: History of: Clotting Problems (blood clot right leg several years ago) - Surgical History Cardiac Surgeries: Patient Denies: Cardiac Catheterization Neurologic Surgeries: Patient denies: Neurologic Surgery Abdominal Surgeries: Patient denies: Abdominal Surgery - Family History Family History: Reports;: Family Heart Disease (In both parents), Family Stroke (brother) - Social History Smoking Status: Heavy tobacco smoker Frequency of Alcohol Use: None Type of Drug Use: None Exam - Constitutional Vitals: Period Temp Pulse Resp BP Sys/Cheney Pulse Ox Last 24 Hr 97.6 F-98.4 F 53-63 18-20 129-141/63-71 91-95 Exam: GENERAL: Patient is in no acute distress. NECK: Neck is supple. There is no JVD. No carotid bruits present. No thyroid masses. CVS: First and second heart sounds are normal. There is no S3 present. Regular rate and rhythm. RESPIRATORY: Lungs are clear to auscultation without any rales or rhonchi. ABDOMEN: Soft and non-tender. Bowel sounds are present. There is no hepatosplenomegaly. EXT: There is no palpable edema. Peripheral pulses are present. Skin: No rashes Central Nervous system: General: Alert, awake and Oriented x 3 Speech: Fluent Comprehension: Intact and normal Facial expressions: Normal Cranial Nerves: CN1/Olfactory: Normal CN II/ Optic: Normal, Visual [place] unreliable CN III, and : FATUMA & EOMI CN V: Normal & intact CN VII: face is symmetric CNVIII: Normal CN XI/X/XI/XII: Intact and Normal Motor: Bulk and Tone is normal. Strength in the right 5/5 Strength in the left 5/5 Sensory: Grossly intact for all the modalities of PP, LT and temp sense Reflexes: 1+ and symmetrical Cerebellar function: Normal finger to nose and heel to mosqueda testing. Toes: Equivocal Gait: Normal heel to heel and toe to toe and tandem walk. Results - Labs CBC & BMP: 11/17/16 01:36 11/17/16 01:36 Assessment and Plan (1) Amaurosis fugax of left eye Status: Acute Assessment and plan: Continue aspirin and Plavix Current Visit: No (2) Carotid artery stenosis Status: Acute Assessment and plan: Agree with watchful observation. Left carotid artery does not need any intervention at this time. Counseled him regarding cessation of smoking Follow-up in 4-6 weeks Thank you for the consult Current Visit: Yes Qualifiers: Laterality: left Qualified Code(s): I65.22 - Occlusion and stenosis of left carotid artery Specialty Discharge - Follow Up or Referrals Follow up with: dr мария [Other] - 2 Weeks Ac Farrell MD [Physician] - 2 Weeks Liam Castellano MD [Physician] - (3 MONTHS)
[2016-11-19] MEDS: LOVASTATIN 20 MG TABLET PO SCH (17:25)
[2016-11-19 17:28] VITALS: BP 140/84
== END 2016-11-19 17:37 | disposition home or self-care (01) | DRG 68 ==
LOC: N.ED 14:26 → SUATTDRO 15:56 → N.EDINP 15:56 → N.TELEN 16:22
PROVIDERS: ADMIT Internal Medicine; ATTEND Internal Medicine

== ENCOUNTER 2021-11-30 20:46 | Observation (INO) ==
[2021-11-30] MEDS ORDERED: DIPH/TET/ACEL PERT BOOSTER VACCINE 0.5 ML VIAL IM ONE (21:13)
[2021-11-30] MEDS ORDERED: SODIUM CHLORIDE 0.9% 1,000 ML IV STA (21:13)
[2021-11-30 21:41] LABS: Basophils % 0.4 % (0.0-0.8); Eosinophils # 0.1 10*3/uL (0.0-0.87); Eosinophils % 0.8 % (0.00-10.9); Hematocrit 48.9 VOL% (42.0-52.0); Immature Granulocytes % 1.1 %; Immature Granulocytes Absolute 0.11 #; Lymphocytes # 1.8 10*3/uL (1.4-4.0); Lymphocytes % 18.8 % (21.2-54.2); Mean Corpuscular HGB Conc 34.8 GM/DL (32-36); Mean Platelet Volume 10.5 FL (9.6-12.0); Monocytes # 0.7 10*3/uL (0.11-0.8); Neutrophils % 71.9 % (38.7-73.9); Platelet Count 139 T/CUMM (130-400); White Blood Count 9.7 T/CUMM (4-12)
[2021-11-30 21:50] LABS: Partial Thromboplastin Time 25.9 SECS (23.8-32.1)
[2021-11-30 22:09] LABS: Albumin 4.2 G/DL (3.4-5.0); Bilirubin,Total 0.4 MG/DL (0.20-1.00); Calcium 9.1 MG/DL (8.5-10.1); Osmolality,Calculated 267.4 MOS/KG (273-304); Potassium 3.9 MMOL/L (3.5-5.1); Total Protein 7.6 G/DL (6.4-8.2)
[2021-11-30 22:09] LABS: Mucus,Urine Occasional /LPF (Occasional); RBC,Urine 1 /HPF (0-4)
[2021-11-30 22:10] LABS: Bilirubin,Urine Negative (Negative); Blood, Urine Small mg/dL (Negative); Glucose,Urine (UA) Negative (Negative); Ketones,Urine Negative (Negative); Nitrite,Urine Negative (Negative); Protein,Urine 30 mg/dL (Negative); Urine Appearance Clear (Clear); Urine Color Yellow (Yellow); Urine Specific Gravity 1.015 (1.001-1.035); Urine Urobilinogen 0.2 eU/dL (<2.0); Urine pH 5.5 (4.5-8.0)
[2021-11-30 22:38] LABS: Barbiturates Screen,Urine Negative (Negative); Benzodiazepines Screen,Urine Negative (Negative); Cannabinoid Screen,Urine Negative (Negative); Opiate Screen,Urine Negative (Negative); Phencyclidine Screen,Urine Negative (Negative)
[2021-12-01] MEDS ORDERED: HYDROmorphone 1 MG/1 ML SYRINGE IV STA (00:25)
[2021-12-01] MEDS ORDERED: ONDANSETRON 4 MG/2 ML VIAL IV STA (00:25)
[2021-12-01] MEDS ORDERED: ACETAMINOPHEN 325 MG TABLET PO PRN (01:22)
[2021-12-01] MEDS ORDERED: GLUCAGON 1 MG VIAL IM PRN (01:22)
[2021-12-01] MEDS ORDERED: NICOTINE 21 MG/24 HR PATCH TRANSDERM PRN (01:22)
[2021-12-01] MEDS ORDERED: ALBUTEROL 2.5 MG/3 ML NEB RESP TX PRN (01:22)
[2021-12-01] MEDS ORDERED: SIMETHICONE CHEW 125 MG TABLET PO PRN (01:22)
[2021-12-01] MEDS ORDERED: ONDANSETRON 4 MG/2 ML VIAL IV PRN (01:22)
[2021-12-01] MEDS ORDERED: DEXTROSE 10% 250 ML BAG IV PRN (01:42)
[2021-12-01] MEDS ORDERED: THIAMINE INJ 100 MG, FOLIC ACID INJ 1 MG, MULTIVITAMIN INJ 10 ML in SODIUM CHLORIDE 0.9... IV ONE (02:00)
[2021-12-01] MEDS: LORazepam 1 MG TABLET PO SCH ×6 (03:40→23:11)
[2021-12-01] MEDS: SODIUM CHLORIDE 0.9% 1,000 ML IV SCH ×2 (03:40→13:43)
[2021-12-01 03:46] LABS: Basophils % 0.2 % (0.0-0.8); Eosinophils % 0.2 % (0.00-10.9); Hematocrit 45.4 VOL% (42.0-52.0); Hemoglobin 15.8 GM/DL (14.0-18.0); Immature Granulocytes % 0.5 %; Immature Granulocytes Absolute 0.07 #; Lymphocytes # 1.6 10*3/uL (1.4-4.0); Lymphocytes % 11.7 % (21.2-54.2); Mean Corpuscular HGB Conc 34.8 GM/DL (32-36); Mean Platelet Volume 10.1 FL (9.6-12.0); Monocytes # 0.9 10*3/uL (0.11-0.8); Monocytes % 6.7 % (1.7-12.7); Neutrophils % 80.7 % (38.7-73.9); Platelet Count 129 T/CUMM (130-400); Red Blood Count 4.88 MC/CUMM (3.8-5.5); Red Cell Distribution Width 12.1 % (9.3-17.3); White Blood Count 13.2 T/CUMM (4-12)
[2021-12-01 04:14] LABS: Albumin 3.6 G/DL (3.4-5.0); Bilirubin,Total 0.5 MG/DL (0.20-1.00); Calcium 8.6 MG/DL (8.5-10.1); Potassium 4.4 MMOL/L (3.5-5.1); Risk Ratio 3.18; Thyroid Stimulating Hormone 3.64 uIU/ml (0.358-3.74); Total Protein 7.2 G/DL (6.4-8.2); VLDL Cholesterol 19.6 MG/DL
[2021-12-01] MEDS: CLOPIDOGREL 75 MG TABLET PO SCH (10:29)
[2021-12-01] MEDS: ASPIRIN EC 81 MG TABLET PO SCH (10:29)
[2021-12-01] MEDS: DOCUSATE SODIUM 100 MG CAPSULE PO SCH ×2 (10:29→21:07)
[2021-12-01] MEDS: PANTOPRAZOLE 40 MG TABLET PO SCH (10:30)
[2021-12-01] MEDS: atenoloL 25 MG TABLET PO SCH (10:30)
[2021-12-01] MEDS: LATANOPROST 0.005% OPH SOLN 2.5 ML BOTTLE BOTH EYES SCH (13:43)
[2021-12-01] MEDS ORDERED: SIMVASTATIN 40 MG TABLET PO SCH (21:00)
[2021-12-02] MEDS: LORazepam 1 MG TABLET PO SCH ×2 (03:45→08:59)
[2021-12-02 05:52] LABS: Basophils % 0.2 % (0.0-0.8); Eosinophils # 0.1 10*3/uL (0.0-0.87); Eosinophils % 0.6 % (0.00-10.9); Hematocrit 43.5 VOL% (42.0-52.0); Hemoglobin 14.8 GM/DL (14.0-18.0); Immature Granulocytes % 0.4 %; Immature Granulocytes Absolute 0.04 #; Lymphocytes # 1.7 10*3/uL (1.4-4.0); Lymphocytes % 15.2 % (21.2-54.2); Mean Platelet Volume 10.6 FL (9.6-12.0); Monocytes # 1.1 10*3/uL (0.11-0.8); Monocytes % 9.6 % (1.7-12.7); Platelet Count 105 T/CUMM (130-400); Red Blood Count 4.58 MC/CUMM (3.8-5.5); Red Cell Distribution Width 12.1 % (9.3-17.3); White Blood Count 10.9 T/CUMM (4-12)
[2021-12-02 06:07] LABS: Calcium 8.8 MG/DL (8.5-10.1); Osmolality,Calculated 274.7 MOS/KG (273-304); Potassium 3.6 MMOL/L (3.5-5.1)
[2021-12-02 08:08] VITALS: BP 149/64
[2021-12-02] MEDS: ASPIRIN EC 81 MG TABLET PO SCH (08:58)
[2021-12-02] MEDS: PANTOPRAZOLE 40 MG TABLET PO SCH (08:58)
[2021-12-02] MEDS: atenoloL 25 MG TABLET PO SCH (08:58)
[2021-12-02] MEDS: CLOPIDOGREL 75 MG TABLET PO SCH (08:58)
[2021-12-02] MEDS ORDERED: FOLIC ACID 1 MG TABLET PO SCH (09:00)
[2021-12-02] MEDS ORDERED: THIAMINE 100 MG TABLET PO SCH (09:00)
[2021-12-02] MEDS ORDERED: MULTIVITAMIN (BEROCCA) TABLET PO SCH (09:00)
[2021-12-02] MEDS: LATANOPROST 0.005% OPH SOLN 2.5 ML BOTTLE BOTH EYES SCH (09:01)
[2021-12-02] MEDS: DOCUSATE SODIUM 100 MG CAPSULE PO SCH (09:01)
== END 2021-12-02 11:10 | disposition home or self-care (01) ==
LOC: EDUNIT# → N.ED 20:46 → N.EDINP 20:46 → SUATTDRO 12-01 01:22 → N.5E 12-01 13:41
PROVIDERS: ADMIT Internal Medicine; ATTEND Internal Medicine